=== PATIENT | male | born 1990 | race Caucasian/White ===

== ENCOUNTER → 2020-07-16 | Outpatient (CLI) | payer BC | LOC: CARD 08:32 | PROVIDERS: ATTEND Internal Medicine Cardiovascular Disease | DX: R07.89 Other chest pain (principal) | CPT/HCPCS: 93306; 93351 ==

== ENCOUNTER → 2021-01-30 | Outpatient (CLI) | payer BC ==
[2021-01-30 17:30] LABS: SEMEN VOLUME 1.6 ML (1.5-5.0)
== END ==
LOC: LABNPT 15:56
PROVIDERS: ATTEND Obstetrics & Gynecology
DX: Z31.41 Encounter for fertility testing (principal)
CPT/HCPCS: 89320

== ENCOUNTER → 2021-10-21 | Outpatient (CLI) | payer OTHER ==
--- NOTE | 2021-10-21 15:39 | Diagnostic Imaging Report ---
PROCEDURE: MRI left joint lower extremity without contrast. TECHNIQUE: Multiplanar, multisequence [id number] MRI of the left lower extremity was accomplished. INDICATION: Injury of the left knee. Left knee pain. COMPARISON: None. FINDINGS: No acute fracture is seen in the left knee. Alignment is normal. There is a small left knee joint effusion. There is a small Lopez's cyst. The articular cartilage in the patellofemoral compartment demonstrates no full-thickness defects. The articular cartilage in the medial compartment and the lateral compartment also demonstrate no full-thickness defects. There is a small oblique tear at the posterior horn of the medial meniscus. The lateral meniscus appears intact. The medial collateral ligament is intact. Adjacent edema is thought to be due to the underlying meniscal pathology. The anterior and posterior cruciate ligaments are intact. The lateral collateral ligamentous complex is intact. The extensor mechanism is intact. The medial and lateral retinacula are intact. Soft tissues about the left knee are otherwise unremarkable. IMPRESSION: 1. Small tear of the medial meniscus in the left knee. 2. Small left knee joint effusion with a small Lopez's cyst. Dictated by: Dictated on workstation # [id number]
== END ==
LOC: RAD 14:00
PROVIDERS: ATTEND Pediatrics
DX: S83.242A Other tear of medial meniscus, current injury, left knee, initial encounter (principal); M71.22 Synovial cyst of popliteal space [Baker], left knee; X58.XXXA Exposure to other specified factors, initial encounter
CPT/HCPCS: 73721